=== PATIENT | female | born 1950 | race African-American/Black ===

== ENCOUNTER 2025-02-19 17:42 | Emergency (ER) | payer OTHER ==
[~2025-02-19] VITALS: Ht 160 cm; Wt 68.2 kg
[2025-02-19 18:26] LABS: COVID AG,FIA SOURCE NASAL SWAB
[2025-02-19 18:43] LABS: PLATELET COUNT (AUTO) 290 K/uL (150-450); RED BLOOD CELL COUNT(AUTO) 3.91 MIL/uL (4.00-5.20); RED CELL DISTRIBUTION WIDTH 13.4 % (11.5-14.5); WHITE BLOOD COUNT (AUTO) 4.2 K/uL (4.5-11.0)
[2025-02-19 18:51] LABS: CALCIUM, TOTAL 9.4 mg/dL (8.8-10.5); CREATININE 1.05 mg/dL (0.60-1.30); GLOMERULAR FILTR. RATE CALC > 60 mL/min (>60); GLUCOSE,RANDOM 103 mg/dL (70-110); SODIUM SERUM 141 mmol/L (136-145); UREA NITROGEN, BLOOD 23 mg/dL (7-18)
[2025-02-19 19:08] LABS: SARS-COV2 (COVID) ANTIGEN,FIA Negative (Negative)
[2025-02-19] MEDS ORDERED: ZOLPIDEM TARTRATE 10 MG TABLET PO PRN (20:15)
[2025-02-19 20:52] VITALS: TEMP 98.7
[2025-02-19 21:20] LABS: APPEARANCE,URINE TURBID (CLEAR); GLUCOSE, URINE (UA) NEGATIVE (NEGATIVE); LEUKOCYTE ESTERASE ,URINE LARGE (NEGATIVE); NITRATE,URINE NEGATIVE (NEGATIVE); OCCULT BLOOD,URINE TRACE (NEGATIVE); PH,URINE DRUG SCREEN 6.5 (5.0-8.0); SPECIFIC GRAVITIY, URINE 1.015 (1.003-1.030)
[2025-02-19 21:26] LABS: AMPHET/METH SCREEN,URINE NEGATIVE (NEGATIVE); BARBITURATE SCREEN, URINE NEGATIVE (NEGATIVE); CANNABINOID SCREEN,URINE NEGATIVE (NEGATIVE); COCAINE SCREEN,URINE NEGATIVE (NEGATIVE); METHADONE SCREEN, URINE NEGATIVE (NEGATIVE)
[2025-02-19 21:32] LABS: ALCOHOL, URINE DRUG SCREEN NEGATIVE (NEGATIVE)
[2025-02-19] MEDS: ACETAMINOPHEN 500 MG TABLET PO ONE (21:35)
[2025-02-19 21:42] LABS: SQUAMOUS EPITHELIAL CELL,UR Rare /LPF (None Seen)
[2025-02-19] MEDS: CEPHALEXIN MONOHYDRATE 500 MG CAPSULE PO ONE (22:05)
[2025-02-19 23:50] VITALS: BP 109/75; PULSE 75; RESP 16; O2SAT 98
== END 2025-02-20 00:07 | disposition short-term general hospital (02) ==
LOC: EMS 17:42
DX: N39.0 Urinary tract infection, site not specified (principal); Z73.6 Limitation of activities due to disability; Z98.890 Other specified postprocedural states; Z20.822 Contact with and (suspected) exposure to COVID-19
CPT/HCPCS: 99285; 70450; 87426; 80048; 81001; 85025; 87077; 87086; 36415; 80307; G0480; 87186